=== PATIENT | female | born 1975 | race Hispanic/Latino ===

== ENCOUNTER 2018-09-08 20:07 | Emergency (ER) | payer MEDICAID ==
[2018-09-08 20:57] LABS: RAPID GROUP A STREP NEGATIVE (NEGATIVE)
[2018-09-08] MEDS ORDERED: DEXAMETHASONE SOD PHOSPHATE 10MG/ML 1ML VIAL ONE (21:32)
== END 2018-09-08 21:54 | disposition home or self-care (01) ==
LOC: EDH 20:07
DX: J01.80 Other acute sinusitis (principal); B96.89 Other specified bacterial agents as the cause of diseases classified elsewhere; E11.9 Type 2 diabetes mellitus without complications; Z79.4 Long term (current) use of insulin; Z91.041 Radiographic dye allergy status; Z98.890 Other specified postprocedural states
CPT/HCPCS: 87804 ×2; 87880; 96372; 99284; J1100